=== PATIENT | male | born 1950 | race Caucasian/White ===

== ENCOUNTER 2020-03-26 14:22 | Observation (INO) | payer MEDICARE, OTHER ==
[2020-03-26] MEDS ORDERED: TYLENOL EXTRA STRENGTH 500 MG PO STA (15:04)
[2020-03-26] MEDS ORDERED: APRESOLINE 20 MG/ML INJ IV ONE (15:04)
--- NOTE | 2020-03-26 15:10 | ERPHSYRPT ---
- History of Present Illness Time Seen by Provider: 03/26/20 14:45 Source: patient Exam Limitations: no limitations Patient Subjective Stated Complaint: hypertension Triage Nursing Assessment: Pt brought to the ER by his , hypertensive, all other vitals wnl, denies pain, pulses normal, took bp medicine today but forgot last night, no difficulty breathing, doesn't appear to be in any distress Physician History: 62 years old male with history of hypertension poorly controlled, diabetes mellitus, BPH presented in the ER with chief complaint of 2 weeks history of uncontrolled blood pressure and has multiple medications changes done from 10 mg lisinopril daily to 40 mg but still blood pressure stays high in 200s. Denies any diet change are any energy drink intake. He denies any chest pain palpitations or new shortness of breath but has chronic smoker cough and dyspnea which is unchanged. No abdominal pain nausea or vomiting reported. Patient reports he has a dull headache most of the time for the last 2 weeks but no focal numbness tingling or weakness. Denies any visual disturbance or difficulty speech. Patient called his doctor and was recommended to report in the ER. Currently blood pressure is 237/1 20s. Timing/Duration: week(s) (2), intermittent, worse Severity: moderate Modifying Factors: Improves With: nothing Associated Symptoms: headaches, No vomiting, No abdominal pain, No shortness of breath, No cough, No chest pain, No loss of appetite (Yet Biolox he has had in his leg he is wondering if that should take care of it ER difficulty breathing or you have trouble breathing or you throat swollen everything seems okay you should probably be okay but if you start where you cannot breathe or you feel like your throat skin closed and do not ) Allergies/Adverse Reactions: No Known Drug Allergies Allergy (Verified 03/26/20 14:36) Home Medications: Glimepiride 4 mg [Amaryl 4 mg] 4 mg PO DAILY 03/26/20 [History] Metoprolol Succinate 50 mg PO DAILY 03/26/20 [History] Tamsulosin HCl 0.4 mg [Flomax 0.4 MG] 0.4 mg PO DAILY 03/26/20 [History] lisinopriL [Lisinopril] 20 mg PO BID 03/26/20 [History] Travel Risk - International Travel Have you traveled outside of the country in past 3 weeks: No - Coronavirus Screening Are you exhibiting any of the following symptoms?: No Close contact with a COVID-19 positive Pt in past 14-21 Days: No - Review of Systems Constitutional: No Symptoms Eyes: No Symptoms Ears, Nose, & Throat: No Symptoms Respiratory: Cough, Dyspnea Cardiac: No Symptoms Abdominal/Gastrointestinal: No Symptoms Genitourinary Symptoms: No Symptoms Musculoskeletal: No Symptoms Skin: No Symptoms Neurological: Headache Psychological: No Symptoms Endocrine: No Symptoms Hematologic/Lymphatic: No Symptoms Immunological/Allergic: No Symptoms - Past Medical History Cardiac History: Hypertension Endocrine Medical History: Diabetes Type II - Past Surgical History Past Surgical History: Yes Musculoskeletal: Orthopedic Surgery Other Surgical History: shoulder-left, left leg, shabana hands - Social History Smoking Status: Current every day smoker Exposure to second hand smoke: Yes Drug Use: marijuana Patient Lives Alone: No - Nursing Vital Signs Nursing Vital Signs: Initial Vital Signs Temperature 98.3 F 03/26/20 14:28 Pulse Rate 77 03/26/20 14:28 Blood Pressure 237/129 03/26/20 14:28 O2 Sat by Pulse Oximetry 98 03/26/20 14:28 Pain Scale Pain Intensity 0 - Physical Exam General Appearance: no apparent distress Eye Exam: PERRL/EOMI, eyes nml inspection Ears, Nose, Throat Exam: normal ENT inspection, TMs normal, pharynx normal Neck Exam: normal inspection, non-tender, supple, full range of motion Respiratory Exam: normal breath sounds, lungs clear Cardiovascular Exam: regular rate/rhythm, normal heart sounds, normal peripheral pulses Gastrointestinal/Abdomen Exam: soft, normal bowel sounds Back Exam: normal inspection, normal range of motion, No CVA tenderness Extremity Exam: normal inspection, normal range of motion Neurologic Exam: alert, oriented x 3, cooperative, manager organizational II-XII nml as tested, normal mood/affect, nml cerebellar function, nml station & gait, sensation nml Skin Exam: normal color SpO2 Interpretation: normal SpO2: 98 O2 Delivery: Room Air - Course EKG Interpreted by Me: RATE (70), Sinus Rhythm, Left Webster Deviation, LAFB, Q- wave (Septal), Non-specific ST Changes, Other Ordered Tests: Active Orders 24 hr Category Date Time Status Bedrest ROUTINE Activity 03/26/20 17:53 Active Bedrest with BRP/BSC ROUTINE Activity 03/26/20 17:53 Active Up With Assistance ROUTINE Activity 03/26/20 17:53 Active Accucheck Q4H Care 03/26/20 17:53 Active Admit as Inpatient ROUTINE Care 03/26/20 17:53 Active Software Engineering Manager STAT Care 03/26/20 15:04 Completed Code Status Order ROUTINE Care 03/26/20 17:53 Active EKG-ER Only STAT Care 03/26/20 15:03 Completed IV Care Q6H Care 03/26/20 17:53 Active IV Insertion STAT Care 03/26/20 15:03 Completed Neuro Checks Q4H Care 03/26/20 17:53 Active Rajesh Hamilton, Apply ROUTINE Care 03/26/20 17:53 Active Weight,Daily 0600 Care 03/26/20 17:53 Active Consistent Carbohydrate Diet 1800 Calorie Diet 03/26/20 Dinner Active CHEST 1 VIEW (PORTABLE) Stat Exams 03/26/20 15:03 Taken HEAD WITHOUT CONTRAST [CT] Stat Exams 03/26/20 15:03 Taken BNP [NT PRO BNP] Stat Lab 03/26/20 15:30 Completed CBC W DIFF AM.LAB Lab 03/27/20 04:00 Ordered CBC W DIFF Stat Lab 03/26/20 15:30 Completed CMP AM.LAB Lab 03/27/20 04:00 Ordered CMP Stat Lab 03/26/20 15:30 Completed TROPONIN Q3H Lab 03/26/20 15:30 Completed TROPONIN Q3H Lab 03/26/20 18:15 Ordered TROPONIN Q3H Lab 03/26/20 21:15 Ordered TROPONIN Q3H Lab 03/27/20 00:15 Ordered TROPONIN Q3H Lab 03/27/20 03:15 Ordered UA W/RFX UR CULTURE Stat Lab 03/26/20 15:30 Completed Transfer Order Routine Transfer 03/26/20 Completed Medication Summary Generic Name Dose Route Start Last Admin Trade Name Freq PRN Reason Stop Dose Admin Acetaminophen 650 mg 03/26/20 17:53 Tylenol 325 Mg PO 04/25/20 17:52 Q4H PRN PRN PAIN AND/OR FEVER Albuterol/Ipratropium 3 ml 03/26/20 17:53 Duoneb 0.5-3 Mg/3 Ml Neb IH 04/25/20 17:52 Q4HPRN PRN SHORTNESS OF BREATH/WHEEZING Famotidine 20 mg 03/26/20 22:00 Pepcid 20 Mg Vial IV 04/25/20 21:59 Q12HT ADILIA Insulin Human Lispro 0 unit 03/26/20 17:53 Humalog SQ 04/25/20 17:52 UD PRN HYPERGLYCEMIA Discontinued Medications Generic Name Dose Route Start Last Admin Trade Name Freq PRN Reason Stop Dose Admin Acetaminophen 1,000 mg 03/26/20 15:04 03/26/20 16:04 Tylenol Extra Strength 500 Mg PO 03/26/20 15:05 1,000 mg STAT STA Administration Acetaminophen Confirm 03/26/20 15:55 Tylenol Extra Strength 500 Mg Administered 03/26/20 15:56 Dose 1,000 mg .ROUTE .STK-MED ONE Hydralazine HCl 10 mg 03/26/20 15:04 03/26/20 16:04 Apresoline 20 Mg/Ml Inj IV 03/26/20 15:05 10 mg STAT ONE Administration Hydralazine HCl Confirm 03/26/20 15:55 Apresoline 20 Mg/Ml Inj Administered 03/26/20 15:56 Dose 20 mg .ROUTE .STK-MED ONE Nicardipine HCl 25 mg/ Sodium 250 mls @ 0 mls/hr 03/26/20 16:24 Chloride IV 04/25/20 16:23 .Q0M PRN TITRATE FOR BLOOD PRESSURE Protocol Titrate Lab/Rad Data: Laboratory Result Diagrams 03/26/20 15:30 03/26/20 15:30 Laboratory Results 03/26/20 03/26/20 03/26/20 Range/Units 15:30 15:30 15:30 WBC (4.0-10.5) K/mm3 RBC (4.1-5.6) M/mm3 Hgb (12.5-18.0) gm/dl Hct (42-50) % MCV (78-100) fl MCH (26-32) pg MCHC (32-36) g/dl RDW (11.5-14.0) % Plt Count (150-450) K/mm3 MPV (7.5-11.0) fl Gran % (36.0-66.0) % Eos # (Auto) (0-0.5) Absolute Lymphs (auto) (1.0-4.6) Absolute Monos (auto) (0.0-1.3) Lymphocytes % (24.0-44.0) % Monocytes % (0.0-12.0) % Eosinophils % (0.00-5.0) % Basophils % (0.0-0.4) % Absolute Granulocytes (1.4-6.9) Basophils # (0-0.4) Sodium 140 (137-145) mmol/L Potassium 3.7 (3.5-5.1) mmol/L Chloride 105 (98-107) mmol/L Carbon Dioxide 28 (22-30) mmol/L Anion Gap 11.8 (5-15) MEQ/L BUN 13 (9-20) mg/dL Creatinine 1.09 (0.66-1.25) mg/dL Estimated GFR > 60.0 ML/MIN Glucose 110 H (74-106) mg/dL Calcium 9.2 (8.4-10.2) mg/dL Total Bilirubin 0.70 (0.2-1.3) mg/dL AST 23 (17-59) U/L ALT 13 (0-50) U/L Alkaline Phosphatase 84 (38-126) U/L Troponin I < 0.012 (0.000-0.034) ng/mL NT-Pro-B Natriuret Pep 487 (0-900) pg/mL Serum Total Protein 8.2 (6.3-8.2) g/dL Albumin 4.4 (3.5-5.0) g/dL Urine Color (YELLOW) Urine Appearance (CLEAR) Urine pH (5-6) Ur Specific [place] (1.005-1.025) Urine Protein (Negative) Urine Ketones (NEGATIVE) Urine Blood (0-5) Sebastian/ul Urine Nitrite (NEGATIVE) Urine Bilirubin (NEGATIVE) Urine Urobilinogen (0-1) mg/dL Ur Leukocyte Esterase (NEGATIVE) Urine WBC (Auto) (0-5) /HPF Urine RBC (Auto) (0-2) /HPF U Epithel Cells (Auto) (FEW) /HPF Urine Bacteria (Auto) (NEGATIVE) /HPF Urine Mucus (Auto) (NEGATIVE) /HPF Urine Culture Reflexed (NO) Urine Glucose (NEGATIVE) mg/dL 03/26/20 03/26/20 Range/Units 15:30 15:30 WBC 8.9 (4.0-10.5) K/mm3 RBC 4.72 (4.1-5.6) M/mm3 Hgb 14.4 (12.5-18.0) gm/dl Hct 41.1 L (42-50) % MCV 87.1 (78-100) fl MCH 30.5 (26-32) pg MCHC 35.0 (32-36) g/dl RDW 14.3 H (11.5-14.0) % Plt Count 299 (150-450) K/mm3 MPV 11.2 H (7.5-11.0) fl Gran % 66.8 H (36.0-66.0) % Eos # (Auto) 0.26 (0-0.5) Absolute Lymphs (auto) 1.90 (1.0-4.6) Absolute Monos (auto) 0.78 (0.0-1.3) Lymphocytes % 21.3 L (24.0-44.0) % Monocytes % 8.7 (0.0-12.0) % Eosinophils % 2.9 (0.00-5.0) % Basophils % 0.3 (0.0-0.4) % Absolute Granulocytes 5.97 (1.4-6.9) Basophils # 0.03 (0-0.4) Sodium (137-145) mmol/L Potassium (3.5-5.1) mmol/L Chloride (98-107) mmol/L Carbon Dioxide (22-30) mmol/L Anion Gap (5-15) MEQ/L BUN (9-20) mg/dL Creatinine (0.66-1.25) mg/dL Estimated GFR ML/MIN Glucose (74-106) mg/dL Calcium (8.4-10.2) mg/dL Total Bilirubin (0.2-1.3) mg/dL AST (17-59) U/L ALT (0-50) U/L Alkaline Phosphatase (38-126) U/L Troponin I (0.000-0.034) ng/mL NT-Pro-B Natriuret Pep (0-900) pg/mL Serum Total Protein (6.3-8.2) g/dL Albumin (3.5-5.0) g/dL Urine Color STRAW (YELLOW) Urine Appearance CLEAR (CLEAR) Urine pH 7.0 (5-6) Ur Specific [place] 1.003 (1.005-1.025) Urine Protein 30 (Negative) Urine Ketones NEGATIVE (NEGATIVE) Urine Blood NEGATIVE (0-5) Sebastian/ul Urine Nitrite NEGATIVE (NEGATIVE) Urine Bilirubin NEGATIVE (NEGATIVE) Urine Urobilinogen NEGATIVE (0-1) mg/dL Ur Leukocyte Esterase NEGATIVE (NEGATIVE) Urine WBC (Auto) NONE (0-5) /HPF Urine RBC (Auto) NONE (0-2) /HPF U Epithel Cells (Auto) NONE (FEW) /HPF Urine Bacteria (Auto) NONE (NEGATIVE) /HPF Urine Mucus (Auto) SLIGHT (NEGATIVE) /HPF Urine Culture Reflexed NO (NO) Urine Glucose NEGATIVE (NEGATIVE) mg/dL - Progress Progress: improved, re-examined Progress Note: 03/26/20 16:55 69 years old is evaluated for uncontrolled blood pressure. On presentation systolic is 237. Patient is complaining of some headache but has nonfocal neuro exam. EKG did not show any acute ischemic changes. Initial troponins are negative. Chest x-ray negative for any acute cardiopulmonary findings. Grossly unremarkable work-up otherwise. I have obtained CT head which is negative for any bleed or ischemia at this point. Patient is given hydralazine but still on reevaluation blood pressure is more than 200 systolic. I have started on Cardene drip. I believe patient needs close monitoring and adjustment of his antihypertensive. I have called his primary care doctor Devang and patient is accepted for admission. Discussed with : Sathish Counseled pt/family regarding: lab results, diagnosis, rad results, smoking cessation - Departure Departure Disposition: Observation Clinical Impression: Hypertensive urgency Condition: Stable Critical Care Time: Yes Critical Care Time(excluding separately billable procedures): Critical 30-74 mins
[2020-03-26] MEDS ORDERED: APRESOLINE 20 MG/ML INJ ONE (15:55)
[2020-03-26] MEDS ORDERED: TYLENOL EXTRA STRENGTH 500 MG ONE (15:55)
[2020-03-26 16:06] LABS: Appearance CLEAR (CLEAR); Bilirubin NEGATIVE (NEGATIVE); Blood NEGATIVE Ery/ul (0-5); Glucose NEGATIVE (NEGATIVE); Ketones NEGATIVE (NEGATIVE); Leukocyte Esterase NEGATIVE (NEGATIVE); Mucus SLIGHT /HPF (NEGATIVE); Nitrite NEGATIVE (NEGATIVE); Protein,Urine Dip 30 (Negative); Specific Gravity 1.003 (1.005-1.025); Urobilinogen NEGATIVE mg/dL (0-1)
[2020-03-26 16:07] LABS: Absolute Neutrophil Ct (ANC) 5.97 (1.4-6.9); BASOPHIL % 0.3 % (0.0-0.4); Basophil (Absolute #) 0.03 (0-0.4); Eosinophil % 2.9 % (0.00-5.0); Eosinophil (Absolute #) 0.26 (0-0.5); Hematocrit 41.1 % (42-50); Hemoglobin 14.4 gm/dl (12.5-18.0); Lymphocytes % 21.3 % (24.0-44.0); Mean Cell Volume 87.1 fl (78-100); Mean Corpuscular Hemoglobin 30.5 pg (26-32); Mean Platelet Volume 11.2 fl (7.5-11.0); Monocyte (Absolute #) 0.78 (0.0-1.3); Monocytes % 8.7 % (0.0-12.0); Neutrophil % 66.8 % (36.0-66.0); Platelet Count 299 K/mm3 (150-450); Red Blood Count 4.72 M/mm3 (4.1-5.6); Red Cell Distribution Width 14.3 % (11.5-14.0); White Blood Count 8.9 K/mm3 (4.0-10.5)
[2020-03-26 16:16] LABS: ALBUMIN 4.4 g/dL (3.5-5.0); ALKALINE PHOSPHATASE 84 U/L (38-126); ANION GAP 11.8 MEQ/L (5-15); BLOOD UREA NITROGEN 13 mg/dL (9-20); CHLORIDE 105 mmol/L (98-107); Calcium 9.2 mg/dL (8.4-10.2); Carbon Dioxide 28 mmol/L (22-30); Creatinine 1 1.09 mg/dL (0.66-1.25); EST GLOMERULAR FILTRATION RATE > 60.0 ML/MIN; Glucose 110 mg/dL (74-106); Potassium 3.7 mmol/L (3.5-5.1); SGOT/AST 23 U/L (17-59); SGPT/ALT 13 U/L (0-50); SODIUM 140 mmol/L (137-145); Total Protein 8.2 g/dL (6.3-8.2)
[2020-03-26] MEDS ORDERED: CARDENE 25 MG/10 ML*** 25 MG in Sodium Chloride 0.9% 250 ML 240 ML IV PRN ×2 (16:24→19:32)
[2020-03-26] MEDS ORDERED: HUMALOG SQ PRN (17:53)
[2020-03-26] MEDS ORDERED: DUONEB 0.5-3 MG/3 ml Neb IH PRN (17:53)
[2020-03-26] MEDS ORDERED: TYLENOL 325 MG PO PRN (17:53)
--- NOTE | 2020-03-26 18:40 | XRAY ---
Indication: Uncontrolled high blood pressure. Comparison: None Portable apical lordotic chest hyperinflated and clear with incidental tiny calcified granulomas and minimal right upper lobe fibrosis/scarring. Heart is not enlarged. Bony thorax intact with mild degenerative changes. Impression: Nonacute hyperinflated chest with chronic features.
--- NOTE | 2020-03-26 18:42 | XRAY ---
Indication: Uncontrolled high blood pressure. Multiple contiguous axial images obtained through the head without contrast. Comparison: None Age-appropriate global atrophy. Minimal degenerative micro-ischemia bilaterally. No acute intracranial hemorrhage, abnormal extra-axial fluid collection, or mass effect. Fourth ventricle is midline without hydrocephalus. Abraham-white matter differentiation preserved. Bony calvarium intact. Visualized paranasal sinuses and mastoid air cells are clear. Impression: 1. Atrophy and degenerative micro-ischemia within normal limits for patient's age. 2. No acute intracranial abnormalities. Comment: Preliminary interpretation was made by [facility]. No critical discrepancy.
[2020-03-26] MEDS ORDERED: CARDENE 25 MG/10 ML IV ONE (19:41)
[2020-03-26] MEDS ORDERED: Sodium Chloride 0.9% 1000 ML 1,000 ML ONE (19:42)
[2020-03-26] MEDS ORDERED: SUBLIMAZE 100 MCG/2 ML IV ONE (19:45)
[2020-03-26] MEDS ORDERED: SUBLIMAZE 250 MCG/5 ML IV ONE (19:45)
[2020-03-26] MEDS ORDERED: Dextrose 5%/Water IV Soln. 250 ML 250 ML IV ONE (19:45)
[2020-03-26] MEDS ORDERED: Zofran 4 MG/2 ML VIAL ONE (19:46)
[2020-03-26] MEDS ORDERED: Zofran 4 MG/2 ML VIAL IV ONE (19:46)
[2020-03-26] MEDS ORDERED: SUBLIMAZE 100 MCG/2 ML ONE (19:46)
[2020-03-26] MEDS ORDERED: TRANDATE 20 MG/5 ML SYRINGE IV ONE (19:51)
[2020-03-26 20:46] VITALS: BP 224/102; PULSE 67; O2SAT 98
[2020-03-26] MEDS ORDERED: Pepcid 20 MG VIAL IV SCH (22:00)
--- NOTE | 2020-03-27 07:38 | PCM.SSS ---
History of Present Illness - Chief Complaint Chief Complaint: very high blood pressure for 2 weeks History of Present Illness: is a 69 years old male with history of hypertension poorly controlled, diabetes mellitus, BPH presented in the ER with chief complaint of 2 weeks history of uncontrolled blood pressure and has multiple medications changes done from 10 mg lisinopril daily to 40 mg but still blood pressure stays high in 200s. Denies any diet change are any energy drink intake. He denies any chest pain palpitations or new shortness of breath but has chronic smoker cough and dyspnea which is unchanged. No abdominal pain nausea or vomiting reported. Patient reports he has a dull headache most of the time for the last 2 weeks but no focal numbness tingling or weakness. Denies any visual disturbance or difficulty speech. Patient called his doctor and was recommended to report in the ER. Currently blood pressure is 237/1 20s. Timing/Duration: week(s) (2), intermittent, worse Severity: moderate Modifying Factors: Improves With: nothing Associated Symptoms: headaches, No vomiting, No abdominal pain, No shortness of breath, No cough, No chest pain, No loss of appetite - Review of Systems Constitutional: No Fever, No Chills Eyes: No Symptoms Ears, Nose, & Throat: No Symptoms Respiratory: No Cough, No Short Of Breath Cardiac: Chest Pain, No Edema, No Syncope Abdominal/Gastrointestinal: No Abdominal Pain, No Nausea, No Vomiting, No Diarrhea Genitourinary Symptoms: No Dysuria Musculoskeletal: No Back Pain, No Neck Pain Skin: No Rash Neurological: No Dizziness, No Focal Weakness, No Sensory Changes Psychological: No Symptoms Endocrine: No Symptoms Hematologic/Lymphatic: No Symptoms Immunological/Allergic: No Symptoms Medications & Allergies Home Medications: Home Medication List Albuterol/Ipratropium cc [Combivent Inhaler COMMON CANISTER] 1 puff IH DAILY PRN PRN 03/26/20 [History Confirmed 03/26/20] Aspirin EC 81 mg [Ecotrin 81 mg] 81 mg PO HS 03/26/20 [History Confirmed 03/26/20] Esomeprazole Magnesium 20 mg PO QAM 03/26/20 [History Confirmed 03/26/20] Fluticasone/Umeclidin/Vilanter [Trelegy Ellipta 100-62.5-25] 1 puff IH DAILY 03/26/20 [History Confirmed 03/26/20] Glimepiride 4 mg [Amaryl 4 mg] 4 mg PO DAILY 03/26/20 [History Confirmed 03/26/20] Metoprolol Succinate 50 mg PO HS 03/26/20 [History Confirmed 03/26/20] Tamsulosin HCl 0.4 mg [Flomax 0.4 MG] 0.4 mg PO DAILY 03/26/20 [History Confirmed 03/26/20] lisinopriL [Lisinopril] 20 mg PO BID 03/26/20 [History Confirmed 03/26/20] Allergies/Adverse Reactions: Allergies Allergy/AdvReac Type Severity Reaction Status Date / Time No Known Drug Allergies Allergy Verified 03/26/20 14:36 - Past Medical History Past Medical History: Yes Neurological History: No Pertinent History ENT History: No Pertinent History Cardiac History: Hypertension Respiratory History: COPD Endocrine Medical History: Diabetes Type II Musculoskelatal History: No Pertinent History GI Medical History: No Pertinent History History: No Pertinent History Pyscho-Social History: No Pertinent History Male Reproductive Disorders: Prostate Problems - Past Surgical History Past Surgical History: Yes Neuro Surgical History: No Pertinent History Cardiac History: No Pertinent History Respiratory Surgery: No Pertinent History GI Surgical History: No Pertinent History Genitourinary Surgical Hx: No Pertinent History Musculskeletal Surgical Hx: Orthopedic Surgery Male Surgical History: No Pertinent History Other Surgical History: shoulder-left, left leg, shabana hands - Social History Smoking Status: Current every day smoker Exposure to second hand smoke: Yes Alcohol: Weekly, Daily Drug Use: marijuana - Physical Exam Vital Signs: Vital Signs - 24 hr Temp Pulse Resp BP Pulse Ox 03/26/20 20:35 98.3 F 67 16 224/102 98 03/26/20 19:06 86 14 93 L 03/26/20 18:05 98 03/26/20 17:10 90 20 183/94 96 03/26/20 16:31 67 18 210/98 97 03/26/20 16:11 65 18 207/96 97 03/26/20 15:56 70 18 212/119 98 03/26/20 14:28 98.3 F 77 237/129 98 General Appearance: no apparent distress, alert Neurologic Exam: alert, oriented x 3, cooperative, normal mood/affect, nml cerebellar function, nml station & gait, sensation nml, No motor deficits Eye Exam: PERRL/EOMI, eyes nml inspection Ears, Nose, Throat Exam: normal ENT inspection, TMs normal, pharynx normal, moist mucous membranes Neck Exam: normal inspection, non-tender, supple, full range of motion Respiratory Exam: normal breath sounds, lungs clear, No respiratory distress Cardiovascular Exam: regular rate/rhythm, normal heart sounds, normal peripheral pulses Gastrointestinal/Abdomen Exam: soft, normal bowel sounds, No tenderness, No mass Back Exam: normal inspection, normal range of motion, No CVA tenderness, No vertebral tenderness Extremity Exam: normal inspection, normal range of motion, pelvis stable Skin Exam: normal color, warm, dry, No rash Lymphatic Exam: No adenopathy Results - Labs Lab/Micro Results: Lab Results-Last 24 Hours 03/26/20 03/26/20 03/26/20 Range/Units 15:30 15:30 15:30 WBC 8.9 (4.0-10.5) K/mm3 RBC 4.72 (4.1-5.6) M/mm3 Hgb 14.4 (12.5-18.0) gm/dl Hct 41.1 L (42-50) % MCV 87.1 (78-100) fl MCH 30.5 (26-32) pg MCHC 35.0 (32-36) g/dl RDW 14.3 H (11.5-14.0) % Plt Count 299 (150-450) K/mm3 MPV 11.2 H (7.5-11.0) fl Gran % 66.8 H (36.0-66.0) % Eos # (Auto) 0.26 (0-0.5) Absolute Lymphs (auto) 1.90 (1.0-4.6) Absolute Monos (auto) 0.78 (0.0-1.3) Lymphocytes % 21.3 L (24.0-44.0) % Monocytes % 8.7 (0.0-12.0) % Eosinophils % 2.9 (0.00-5.0) % Basophils % 0.3 (0.0-0.4) % Absolute Granulocytes 5.97 (1.4-6.9) Basophils # 0.03 (0-0.4) Sodium 140 (137-145) mmol/L Potassium 3.7 (3.5-5.1) mmol/L Chloride 105 (98-107) mmol/L Carbon Dioxide 28 (22-30) mmol/L Anion Gap 11.8 (5-15) MEQ/L BUN 13 (9-20) mg/dL Creatinine 1.09 (0.66-1.25) mg/dL Estimated GFR > 60.0 ML/MIN Glucose 110 H (74-106) mg/dL Hemoglobin A1c (4.5-6.0) % Calcium 9.2 (8.4-10.2) mg/dL Total Bilirubin 0.70 (0.2-1.3) mg/dL AST 23 (17-59) U/L ALT 13 (0-50) U/L Alkaline Phosphatase 84 (38-126) U/L Troponin I (0.000-0.034) ng/mL NT-Pro-B Natriuret Pep (0-900) pg/mL Serum Total Protein 8.2 (6.3-8.2) g/dL Albumin 4.4 (3.5-5.0) g/dL Urine Color STRAW (YELLOW) Urine Appearance CLEAR (CLEAR) Urine pH 7.0 (5-6) Ur Specific [place] 1.003 (1.005-1.025) Urine Protein 30 (Negative) Urine Ketones NEGATIVE (NEGATIVE) Urine Blood NEGATIVE (0-5) Sebastian/ul Urine Nitrite NEGATIVE (NEGATIVE) Urine Bilirubin NEGATIVE (NEGATIVE) Urine Urobilinogen NEGATIVE (0-1) mg/dL Ur Leukocyte Esterase NEGATIVE (NEGATIVE) Urine WBC (Auto) NONE (0-5) /HPF Urine RBC (Auto) NONE (0-2) /HPF U Epithel Cells (Auto) NONE (FEW) /HPF Urine Bacteria (Auto) NONE (NEGATIVE) /HPF Urine Mucus (Auto) SLIGHT (NEGATIVE) /HPF Urine Culture Reflexed NO (NO) Urine Glucose NEGATIVE (NEGATIVE) mg/dL 03/26/20 03/26/20 03/26/20 Range/Units 15:30 15:30 18:20 WBC (4.0-10.5) K/mm3 RBC (4.1-5.6) M/mm3 Hgb (12.5-18.0) gm/dl Hct (42-50) % MCV (78-100) fl MCH (26-32) pg MCHC (32-36) g/dl RDW (11.5-14.0) % Plt Count (150-450) K/mm3 MPV (7.5-11.0) fl Gran % (36.0-66.0) % Eos # (Auto) (0-0.5) Absolute Lymphs (auto) (1.0-4.6) Absolute Monos (auto) (0.0-1.3) Lymphocytes % (24.0-44.0) % Monocytes % (0.0-12.0) % Eosinophils % (0.00-5.0) % Basophils % (0.0-0.4) % Absolute Granulocytes (1.4-6.9) Basophils # (0-0.4) Sodium (137-145) mmol/L Potassium (3.5-5.1) mmol/L Chloride (98-107) mmol/L Carbon Dioxide (22-30) mmol/L Anion Gap (5-15) MEQ/L BUN (9-20) mg/dL Creatinine (0.66-1.25) mg/dL Estimated GFR ML/MIN Glucose (74-106) mg/dL Hemoglobin A1c (4.5-6.0) % Calcium (8.4-10.2) mg/dL Total Bilirubin (0.2-1.3) mg/dL AST (17-59) U/L ALT (0-50) U/L Alkaline Phosphatase (38-126) U/L Troponin I < 0.012 < 0.012 (0.000-0.034) ng/mL NT-Pro-B Natriuret Pep 487 (0-900) pg/mL Serum Total Protein (6.3-8.2) g/dL Albumin (3.5-5.0) g/dL Urine Color (YELLOW) Urine Appearance (CLEAR) Urine pH (5-6) Ur Specific [place] (1.005-1.025) Urine Protein (Negative) Urine Ketones (NEGATIVE) Urine Blood (0-5) Sebastian/ul Urine Nitrite (NEGATIVE) Urine Bilirubin (NEGATIVE) Urine Urobilinogen (0-1) mg/dL Ur Leukocyte Esterase (NEGATIVE) Urine WBC (Auto) (0-5) /HPF Urine RBC (Auto) (0-2) /HPF U Epithel Cells (Auto) (FEW) /HPF Urine Bacteria (Auto) (NEGATIVE) /HPF Urine Mucus (Auto) (NEGATIVE) /HPF Urine Culture Reflexed (NO) Urine Glucose (NEGATIVE) mg/dL 03/26/20 03/26/20 Range/Units 20:00 Unknown WBC (4.0-10.5) K/mm3 RBC (4.1-5.6) M/mm3 Hgb (12.5-18.0) gm/dl Hct (42-50) % MCV (78-100) fl MCH (26-32) pg MCHC (32-36) g/dl RDW (11.5-14.0) % Plt Count (150-450) K/mm3 MPV (7.5-11.0) fl Gran % (36.0-66.0) % Eos # (Auto) (0-0.5) Absolute Lymphs (auto) (1.0-4.6) Absolute Monos (auto) (0.0-1.3) Lymphocytes % (24.0-44.0) % Monocytes % (0.0-12.0) % Eosinophils % (0.00-5.0) % Basophils % (0.0-0.4) % Absolute Granulocytes (1.4-6.9) Basophils # (0-0.4) Sodium (137-145) mmol/L Potassium (3.5-5.1) mmol/L Chloride (98-107) mmol/L Carbon Dioxide (22-30) mmol/L Anion Gap (5-15) MEQ/L BUN (9-20) mg/dL Creatinine (0.66-1.25) mg/dL Estimated GFR ML/MIN Glucose (74-106) mg/dL Hemoglobin A1c 6.84 H (4.5-6.0) % Calcium (8.4-10.2) mg/dL Total Bilirubin (0.2-1.3) mg/dL AST (17-59) U/L ALT (0-50) U/L Alkaline Phosphatase (38-126) U/L Troponin I < 0.012 (0.000-0.034) ng/mL NT-Pro-B Natriuret Pep (0-900) pg/mL Serum Total Protein (6.3-8.2) g/dL Albumin (3.5-5.0) g/dL Urine Color (YELLOW) Urine Appearance (CLEAR) Urine pH (5-6) Ur Specific [place] (1.005-1.025) Urine Protein (Negative) Urine Ketones (NEGATIVE) Urine Blood (0-5) Sebastian/ul Urine Nitrite (NEGATIVE) Urine Bilirubin (NEGATIVE) Urine Urobilinogen (0-1) mg/dL Ur Leukocyte Esterase (NEGATIVE) Urine WBC (Auto) (0-5) /HPF Urine RBC (Auto) (0-2) /HPF U Epithel Cells (Auto) (FEW) /HPF Urine Bacteria (Auto) (NEGATIVE) /HPF Urine Mucus (Auto) (NEGATIVE) /HPF Urine Culture Reflexed (NO) Urine Glucose (NEGATIVE) mg/dL - Radiology Impressions Radiology Exams & Impressions: Radiology Procedures Category Date Time Status ABDOMEN AND PELVIS W CONTRAST [CT] Stat Exams 03/26/20 19:49 Taken CHEST 1 VIEW (PORTABLE) Stat Exams 03/26/20 15:03 Completed CHEST WITH CONTRAST [CT] Stat Exams 03/26/20 19:49 Taken HEAD WITHOUT CONTRAST [CT] Stat Exams 03/26/20 15:03 Completed - Other Procedures and Tests Respiratory Therapy 03/26/20 19:06 Respiratory Therapy Assessment DAILY 03/26/20 21:35 Oxygen Nasal Cannula 4 lpm Assessment/Plan (1) Hypertensive urgency Status: Acute Assessment & Plan: Chief Complaint Diagnosis very high blood pressure for 2 weeks Allergies Allergy/AdvReac Type Severity Reaction Status Date / Time No Known Drug Allergies Allergy Verified 03/26/20 14:36 Vital Signs (Last 24 hours) Temp Pulse Resp BP Pulse Ox 03/26/20 20:35 98.3 F 67 16 224/102 98 03/26/20 19:06 86 14 93 L 03/26/20 18:05 98 03/26/20 17:10 90 20 183/94 96 03/26/20 16:31 67 18 210/98 97 03/26/20 16:11 65 18 207/96 97 03/26/20 15:56 70 18 212/119 98 03/26/20 14:28 98.3 F 77 237/129 98 Home Medications Medication Instructions Recorded Confirmed Last Taken Type Albuterol/Ipratropium cc 1 puff IH DAILY PRN PRN 03/26/20 03/26/20 Unknown H istory [Combivent Inhaler COMMON CANISTER] Aspirin EC 81 mg [Ecotrin 81 81 mg PO HS 03/26/20 03/26/20 03/25/20 History mg] Esomeprazole Magnesium 20 mg PO QAM 03/26/20 03/26/20 03/26/20 History Fluticasone/Umeclidin/Vilanter 1 puff IH DAILY 03/26/20 03/26/20 Unknown History [Trelecathleen Ellipta 100-62.5-25] Glimepiride 4 mg [Amaryl 4 4 mg PO DAILY 03/26/20 03/26/20 03/26/20 History mg] Metoprolol Succinate 50 mg PO HS 03/26/20 03/26/20 03/25/20 History Tamsulosin HCl 0.4 mg [Flomax 0.4 mg PO DAILY 03/26/20 03/26/20 03/26/20 History 0.4 MG] lisinopriL [Lisinopril] 20 mg PO BID 03/26/20 03/26/20 03/26/20 History Current Medications Discontinued Medications Generic Name Dose Route Start Last Admin Trade Name Freq PRN Reason Stop Dose Admin Acetaminophen 1,000 mg 03/26/20 15:04 03/26/20 16:04 Tylenol Extra Strength 500 Mg PO 03/26/20 15:05 1,000 mg STAT STA Administration Acetaminophen Confirm 03/26/20 15:55 Tylenol Extra Strength 500 Mg Administered 03/26/20 15:56 Dose 1,000 mg .ROUTE .STK-MED ONE Acetaminophen 650 mg 03/26/20 17:53 Tylenol 325 Mg PO 04/25/20 17:52 Q4H PRN PRN PAIN AND/OR FEVER Albuterol/Ipratropium 3 ml 03/26/20 17:53 03/26/20 19:04 Duoneb 0.5-3 Mg/3 Ml Neb IH 04/25/20 17:52 3 ml Q4HPRN PRN Administration SHORTNESS OF BREATH/WHEEZING Famotidine 20 mg 03/26/20 22:00 Pepcid 20 Mg Vial IV 04/25/20 21:59 Q12HT ADILIA Fentanyl Citrate 50 mcg 03/26/20 19:45 Sublimaze 250 Mcg/5 Ml IV 03/26/20 19:46 NOW ONE Fentanyl Citrate Confirm 03/26/20 19:46 Sublimaze 100 Mcg/2 Ml Administered 03/26/20 19:47 Dose 100 mcg .ROUTE .STK-MED ONE Fentanyl Citrate 50 mcg 03/26/20 19:45 03/26/20 19:45 Sublimaze 100 Mcg/2 Ml IV 03/26/20 19:46 50 mcg STAT ONE Administration Hydralazine HCl 10 mg 03/26/20 15:04 03/26/20 16:04 Apresoline 20 Mg/Ml Inj IV 03/26/20 15:05 10 mg STAT ONE Administration Hydralazine HCl Confirm 03/26/20 15:55 Apresoline 20 Mg/Ml Inj Administered 03/26/20 15:56 Dose 20 mg .ROUTE .STK-MED ONE Nicardipine HCl 25 mg/ Sodium 250 mls @ 0 mls/hr 03/26/20 16:24 03/26/20 19:52 Chloride IV 04/25/20 16:23 0.5 mg/hr .Q0M PRN 5 mls/hr TITRATE FOR BLOOD PRESSURE Administration Protocol Titrate Nicardipine HCl 25 mg/ Sodium 250 mls @ 0 mls/hr 03/26/20 19:32 Chloride IV 04/25/20 19:31 .Q0M PRN TITRATE FOR BLOOD PRESSURE Protocol Titrate Sodium Chloride Confirm 03/26/20 19:42 Sodium Chloride 0.9% 1000 Ml Administered 03/26/20 19:43 Dose 1,000 mls @ ud .ROUTE .STK-MED ONE Dextrose Confirm 03/26/20 19:45 Dextrose 5%/Water Iv Soln. 250 Ml Administered 03/26/20 19:46 Dose 250 mls @ ud IV .STK-MED ONE Insulin Human Lispro 0 unit 03/26/20 17:53 Humalog SQ 04/25/20 17:52 UD PRN HYPERGLYCEMIA Labetalol HCl Confirm 03/26/20 19:51 Trandate 20 Mg/5 Ml Syringe Administered 03/26/20 19:52 Dose 20 mg IV .STK-MED ONE Nicardipine HCl Confirm 03/26/20 19:41 Cardene 25 Mg/10 Ml Administered 03/26/20 19:42 Dose 25 mg IV .STK-MED ONE Ondansetron HCl 4 mg 03/26/20 19:46 03/26/20 19:45 Zofran 4 Mg/2 Ml Vial IV 03/26/20 19:47 4 mg NOW ONE Administration Ondansetron HCl Confirm 03/26/20 19:46 Zofran 4 Mg/2 Ml Vial Administered 03/26/20 19:47 Dose 4 mg .ROUTE .STK-MED ONE Intake & Output (Last 24 hours) 03/24/20 03/25/20 03/26/20 03/27/20 11:59 11:59 11:59 11:59 Weight 78.4 kg Laboratory Results (Last 24 hours) 03/26/20 03/26/20 03/26/20 Unknown 20:00 18:20 WBC RBC Hgb Hct MCV MCH MCHC RDW Plt Count MPV Gran % Eos # (Auto) Absolute Lymphs (auto) Absolute Monos (auto) Lymphocytes % Monocytes % Eosinophils % Basophils % Absolute Granulocytes Basophils # Sodium Potassium Chloride Carbon Dioxide Anion Gap BUN Creatinine Estimated GFR Glucose Hemoglobin A1c 6.84 H Calcium Total Bilirubin AST ALT Alkaline Phosphatase Troponin I < 0.012 < 0.012 NT-Pro-B Natriuret Pep Serum Total Protein Albumin Urine Color Urine Appearance Urine pH Ur Specific [place] Urine Protein Urine Ketones Urine Blood Urine Nitrite Urine Bilirubin Urine Urobilinogen Ur Leukocyte Esterase Urine WBC (Auto) Urine RBC (Auto) U Epithel Cells (Auto) Urine Bacteria (Auto) Urine Mucus (Auto) Urine Culture Reflexed Urine Glucose 03/26/20 03/26/20 03/26/20 15:30 15:30 15:30 WBC RBC Hgb Hct MCV MCH MCHC RDW Plt Count MPV Gran % Eos # (Auto) Absolute Lymphs (auto) Absolute Monos (auto) Lymphocytes % Monocytes % Eosinophils % Basophils % Absolute Granulocytes Basophils # Sodium 140 Potassium 3.7 Chloride 105 Carbon Dioxide 28 Anion Gap 11.8 BUN 13 Creatinine 1.09 Estimated GFR > 60.0 Glucose 110 H Hemoglobin A1c Calcium 9.2 Total Bilirubin 0.70 AST 23 ALT 13 Alkaline Phosphatase 84 Troponin I < 0.012 NT-Pro-B Natriuret Pep 487 Serum Total Protein 8.2 Albumin 4.4 Urine Color Urine Appearance Urine pH Ur Specific [place] Urine Protein Urine Ketones Urine Blood Urine Nitrite Urine Bilirubin Urine Urobilinogen Ur Leukocyte Esterase Urine WBC (Auto) Urine RBC (Auto) U Epithel Cells (Auto) Urine Bacteria (Auto) Urine Mucus (Auto) Urine Culture Reflexed Urine Glucose 03/26/20 03/26/20 15:30 15:30 WBC 8.9 RBC 4.72 Hgb 14.4 Hct 41.1 L MCV 87.1 MCH 30.5 MCHC 35.0 RDW 14.3 H Plt Count 299 MPV 11.2 H Gran % 66.8 H Eos # (Auto) 0.26 Absolute Lymphs (auto) 1.90 Absolute Monos (auto) 0.78 Lymphocytes % 21.3 L Monocytes % 8.7 Eosinophils % 2.9 Basophils % 0.3 Absolute Granulocytes 5.97 Basophils # 0.03 Sodium Potassium Chloride Carbon Dioxide Anion Gap BUN Creatinine Estimated GFR Glucose Hemoglobin A1c Calcium Total Bilirubin AST ALT Alkaline Phosphatase Troponin I NT-Pro-B Natriuret Pep Serum Total Protein Albumin Urine Color STRAW Urine Appearance CLEAR Urine pH 7.0 Ur Specific [place] 1.003 Urine Protein 30 Urine Ketones NEGATIVE Urine Blood NEGATIVE Urine Nitrite NEGATIVE Urine Bilirubin NEGATIVE Urine Urobilinogen NEGATIVE Ur Leukocyte Esterase NEGATIVE Urine WBC (Auto) NONE Urine RBC (Auto) NONE U Epithel Cells (Auto) NONE Urine Bacteria (Auto) NONE Urine Mucus (Auto) SLIGHT Urine Culture Reflexed NO Urine Glucose NEGATIVE Orders (Last 24 hours) Category Date Time Status Bedrest ROUTINE Activity 03/26/20 17:53 Active Bedrest with BRP/BSC ROUTINE Activity 03/26/20 17:53 Active Up With Assistance ROUTINE Activity 03/26/20 17:53 Active Accucheck Q4H Care 03/26/20 17:53 Active Entry Level Electrical Engineer STAT Care 03/26/20 15:04 Completed Code Status Order ROUTINE Care 03/26/20 17:53 Active EKG-ER Only STAT Care 03/26/20 15:03 Completed IV Care Q6H Care 03/26/20 17:53 Active IV Insertion STAT Care 03/26/20 15:03 Completed Neuro Checks Q4H Care 03/26/20 17:[address] in Observation ROUTINE Care 03/26/20 17:42 Active Rajesh Hamilton, Apply ROUTINE Care 03/26/20 17:53 Active Weight,Daily 0600 Care 03/26/20 17:53 Active Brake Repairer Railroad/Discharge Plan ROUTINE Cons 03/26/20 19:26 Active Consistent Carbohydrate Diet 1800 Calorie Diet 03/26/20 Dinner Completed Nutritional Admission Screen ONCE Diet 03/26/20 20:57 Active ABDOMEN AND PELVIS W CONTRAST [CT] Stat Exams 03/26/20 19:49 Taken CHEST 1 VIEW (PORTABLE) Stat Exams 03/26/20 15:03 Completed CHEST WITH CONTRAST [CT] Stat Exams 03/26/20 19:49 Taken HEAD WITHOUT CONTRAST [CT] Stat Exams 03/26/20 15:03 Completed BNP [NT PRO BNP] Stat Lab 03/26/20 15:30 Completed CBC W DIFF Stat Lab 03/26/20 15:30 Completed CMP Stat Lab 03/26/20 15:30 Completed TROPONIN Q3H Lab 03/26/20 15:30 Completed TROPONIN Q3H Lab 03/26/20 18:20 Completed TROPONIN Q3H Lab 03/26/20 20:00 Completed UA W/RFX UR CULTURE Stat Lab 03/26/20 15:30 Completed Acetaminophen 325 mg [Tylenol 325 mg] Med 03/26/20 17:53 Discontinued 650 mg PO Q4H PRN PRN Acetaminophen 500 mg [Tylenol Extra Strength 500 mg* Med 03/26/20 15:55 Discontinued ] 1,000 mg .ROUTE .STK-MED ONE Acetaminophen 500 mg [Tylenol Extra Strength 500 mg* Med 03/26/20 15:04 Discontinued ] 1,000 mg PO STAT STA Albuterol/Ipratropium 3ml Neb* [DUONEB 0.5-3 MG/3 ml Med 03/26/20 17:53 Discontinued Neb] 3 ml IH Q4HPRN PRN D5w 250 ml [Dextrose 5%/Water IV Soln. 250 ML] 250 ml Med 03/26/20 19:45 Discontinued IV UD Famotidine 20 mg Vial [Pepcid 20 MG VIAL] Med 03/26/20 22:00 Discontinued 20 mg IV Q12HT Fentanyl Citrate 100 Mcg/2 ml* [Sublimaze 100 Mcg/2 ml* Med 03/26/20 19:46 Discontinued ] 100 mcg .ROUTE .STK-MED ONE Fentanyl Citrate 100 Mcg/2 ml* [Sublimaze 100 Mcg/2 ml* Med 03/26/20 19:45 Discontinued ] 50 mcg IV STAT ONE Fentanyl Citrate 250 Mcg/5 ml* [Sublimaze 250 Mcg/5 ml* Med 03/26/20 19:45 Discontinued ] 50 mcg IV NOW ONE HydrALAzine HCL 20 MG INJ [Apresoline 20 mg/ml Inj Med 03/26/20 15:04 D iscontinued *] 10 mg IV STAT ONE HydrALAzine HCL 20 MG INJ [Apresoline 20 mg/ml Inj Med 03/26/20 15:55 Discontinued *] 20 mg .ROUTE .STK-MED ONE Insulin Lispro [Humalog] Med 03/26/20 17:53 Discontinued See Dose Instructions SQ UD PRN Labetalol HCl 20 mg/4 ml [Trandate 20 mg/5 ml Med 03/26/20 19:51 Discontinued Syringe] 20 mg IV .STK-MED ONE NaCl 0.9% 1000 ml [Sodium Chloride 0.9% 1000 ML] 1,000 Med 03/26/20 19:42 Discontinued ml .ROUTE UD NaCl 0.9% 250 ml [Sodium Chloride 0.9% 250 ML] 240 ml Med 03/26/20 16:24 Discontinued Nicardipine HCl 25Mg/10Ml [Cardene 25 mg/10 ml] 25 mg IV Titrate NaCl 0.9% 250 ml [Sodium Chloride 0.9% 250 ML] 240 ml Med 03/26/20 19:32 Discontinued Nicardipine HCl 25Mg/10Ml [Cardene 25 mg/10 ml] 25 mg IV Titrate Nicardipine HCl 25Mg/10Ml [Cardene 25 mg/10 ml] Med 03/26/20 19:41 Discontinued 25 mg IV .STK-MED ONE Ondansetron HCl 4 mg/2 ml [Zofran 4 MG/2 ML VIAL] Med 03/26/20 19:46 Discontinued 4 mg .ROUTE .STK-MED ONE Ondansetron HCl 4 mg/2 ml [Zofran 4 MG/2 ML VIAL] Med 03/26/20 19:46 Discontinued 4 mg IV NOW ONE EKG ROUTINE RT 03/26/20 19:55 Completed Oxygen Nasal Cannula 4 lpm RT 03/26/20 21:35 Active Respiratory Therapy Assessment DAILY RT 03/26/20 19:06 Active Patient Care Notes (Last 24 hours) 03/26/20 22:32 Nursing Note by Deena De La Rosa 1939- Pt put metal fabrication supervisor light and stated "I'm having chest pain." Heart rate increased to 180's. Assisted pt to bed from bedside chair. 1941-Code rapid called d/t increased heart rate and B/P. VS-98.7m 193/109, 166, 22, 99%, GCS 15. Instructed pt to cough. Heart rate decreased to 160's. Lungs clr. Resp easy/even. "Pt shaky". HS in room. 1943-ER MD in room. O2 applied @ 4 L NC. Continues to c/o pain in left chest. 1947-Fentanyl 50 mg IV given, Zofran 4mg IV given, 1949- 2nd IV started in rt ac 20g 1951-Cardene 5mg/hr started. 1952- Labetalol 10 mg IV given 1955- Lt arm 134/112, 153, 99% on 4L. Rt arm 176/99, 132, 99% 4L. 1954-EKG done. 1999 Labetalol 10mg IV given. 2001 163/118, 123, (*% 4L. 2003 Pt to radiology. 2004-Called Dr La pt to transfer to [facility]. 2009-Called to report transfer. 2054-Pt return from radiology 2100-Pt transfer to [facility]. Initialized on 03/26/20 22:32 - END OF NOTE 03/26/20 18:05 Nursing Note by Sharron Lainez ADMISSION ORDER WAS PUT IN INPATIENT. RECEIVED A CALL FROM [facility] TO HAVE PATIENT ADMITTED OBSERVATION. ORDER WAS NOT CHANGED AT THE TIME PATIENT CAME TO FLOOR. I ADMITTED OBS. Initialized on 03/26/20 18:05 - END OF NOTE patient transferred to [facility] Code(s): I16.0 - HYPERTENSIVE URGENCY (2) Type 2 diabetes mellitus Status: Acute Qualifiers: Diabetes mellitus penitentiary insulin use: without equipment operator intermodal yard use Diabetes mellitus complication status: with circulatory complication Diabetes mellitus complication detail: with other circulatory complications Qualified Code(s): E11.59 - Type 2 diabetes mellitus with other circulatory complications Hospital Summary - Hospital Course Hospital Course: Last Vital Signs Temp 98.3 F 03/26/20 20:35 Pulse 67 03/26/20 20:35 Resp 16 03/26/20 20:35 BP 224/102 03/26/20 20:35 Pulse Ox 98 03/26/20 20:35 Allergies No Known Drug Allergies Allergy (Verified 03/26/20 14:36) Intake & Output 03/26/20 03/27/20 11:59 11:59 Weight 78.4 kg Orders 03/26/20 17:42 Place in Observation ROUTINE 03/26/20 20:57 Nutritional Admission Screen ONCE 03/26/20 21:35 Oxygen Nasal Cannula 4 lpm Lab Tests 03/26/20 03/26/20 03/26/20 15:30 15:30 15:30 WBC 8.9 RBC 4.72 Hgb 14.4 Hct 41.1 L MCV 87.1 MCH 30.5 MCHC 35.0 RDW 14.3 H Plt Count 299 MPV 11.2 H Gran % 66.8 H Eos # (Auto) 0.26 Absolute Lymphs (auto) 1.90 Absolute Monos (auto) 0.78 Lymphocytes % 21.3 L Monocytes % 8.7 Eosinophils % 2.9 Basophils % 0.3 Absolute Granulocytes 5.97 Basophils # 0.03 Sodium 140 Potassium 3.7 Chloride 105 Carbon Dioxide 28 Anion Gap 11.8 BUN 13 Creatinine 1.09 Estimated GFR > 60.0 Glucose 110 H Hemoglobin A1c Calcium 9.2 Total Bilirubin 0.70 AST 23 ALT 13 Alkaline Phosphatase 84 Troponin I NT-Pro-B Natriuret Pep Serum Total Protein 8.2 Albumin 4.4 Urine Color STRAW Urine Appearance CLEAR Urine pH 7.0 Ur Specific [place] 1.003 Urine Protein 30 Urine Ketones NEGATIVE Urine Blood NEGATIVE Urine Nitrite NEGATIVE Urine Bilirubin NEGATIVE Urine Urobilinogen NEGATIVE Ur Leukocyte Esterase NEGATIVE Urine WBC (Auto) NONE Urine RBC (Auto) NONE U Epithel Cells (Auto) NONE Urine Bacteria (Auto) NONE Urine Mucus (Auto) SLIGHT Urine Culture Reflexed NO Urine Glucose NEGATIVE 03/26/20 03/26/20 03/26/20 15:30 15:30 18:20 WBC RBC Hgb Hct MCV MCH MCHC RDW Plt Count MPV Gran % Eos # (Auto) Absolute Lymphs (auto) Absolute Monos (auto) Lymphocytes % Monocytes % Eosinophils % Basophils % Absolute Granulocytes Basophils # Sodium Potassium Chloride Carbon Dioxide Anion Gap BUN Creatinine Estimated GFR Glucose Hemoglobin A1c Calcium Total Bilirubin AST ALT Alkaline Phosphatase Troponin I < 0.012 < 0.012 NT-Pro-B Natriuret Pep 487 Serum Total Protein Albumin Urine Color Urine Appearance Urine pH Ur Specific [place] Urine Protein Urine Ketones Urine Blood Urine Nitrite Urine Bilirubin Urine Urobilinogen Ur Leukocyte Esterase Urine WBC (Auto) Urine RBC (Auto) U Epithel Cells (Auto) Urine Bacteria (Auto) Urine Mucus (Auto) Urine Culture Reflexed Urine Glucose 03/26/20 03/26/20 20:00 Unknown WBC RBC Hgb Hct MCV MCH MCHC RDW Plt Count MPV Gran % Eos # (Auto) Absolute Lymphs (auto) Absolute Monos (auto) Lymphocytes % Monocytes % Eosinophils % Basophils % Absolute Granulocytes Basophils # Sodium Potassium Chloride Carbon Dioxide Anion Gap BUN Creatinine Estimated GFR Glucose Hemoglobin A1c 6.84 H Calcium Total Bilirubin AST ALT Alkaline Phosphatase Troponin I < 0.012 NT-Pro-B Natriuret Pep Serum Total Protein Albumin Urine Color Urine Appearance Urine pH Ur Specific [place] Urine Protein Urine Ketones Urine Blood Urine Nitrite Urine Bilirubin Urine Urobilinogen Ur Leukocyte Esterase Urine WBC (Auto) Urine RBC (Auto) U Epithel Cells (Auto) Urine Bacteria (Auto) Urine Mucus (Auto) Urine Culture Reflexed Urine Glucose - Vitals & Intake/Output Vital Signs: Vital Signs Temperature 98.3 F 03/26/20 20:35 Pulse Rate 67 03/26/20 20:35 Respiratory Rate 16 03/26/20 20:35 Blood Pressure 224/102 03/26/20 20:35 O2 Sat by Pulse Oximetry 98 03/26/20 20:35 Intake & Output: Intake & Output 03/24/20 03/25/20 03/26/20 03/27/20 11:59 11:59 11:59 11:59 Weight 78.4 kg - Lab Result Diagrams: 03/26/20 15:30 03/26/20 15:30 Lab Results-Last 24 Hrs: Lab Results-Last 24 Hours 03/26/20 03/26/20 03/26/20 Range/Units 15:30 15:30 15:30 WBC 8.9 (4.0-10.5) K/mm3 RBC 4.72 (4.1-5.6) M/mm3 Hgb 14.4 (12.5-18.0) gm/dl Hct 41.1 L (42-50) % MCV 87.1 (78-100) fl MCH 30.5 (26-32) pg MCHC 35.0 (32-36) g/dl RDW 14.3 H (11.5-14.0) % Plt Count 299 (150-450) K/mm3 MPV 11.2 H (7.5-11.0) fl Gran % 66.8 H (36.0-66.0) % Eos # (Auto) 0.26 (0-0.5) Absolute Lymphs (auto) 1.90 (1.0-4.6) Absolute Monos (auto) 0.78 (0.0-1.3) Lymphocytes % 21.3 L (24.0-44.0) % Monocytes % 8.7 (0.0-12.0) % Eosinophils % 2.9 (0.00-5.0) % Basophils % 0.3 (0.0-0.4) % Absolute Granulocytes 5.97 (1.4-6.9) Basophils # 0.03 (0-0.4) Sodium 140 (137-145) mmol/L Potassium 3.7 (3.5-5.1) mmol/L Chloride 105 (98-107) mmol/L Carbon Dioxide 28 (22-30) mmol/L Anion Gap 11.8 (5-15) MEQ/L BUN 13 (9-20) mg/dL Creatinine 1.09 (0.66-1.25) mg/dL Estimated GFR > 60.0 ML/MIN Glucose 110 H (74-106) mg/dL Hemoglobin A1c (4.5-6.0) % Calcium 9.2 (8.4-10.2) mg/dL Total Bilirubin 0.70 (0.2-1.3) mg/dL AST 23 (17-59) U/L ALT 13 (0-50) U/L Alkaline Phosphatase 84 (38-126) U/L Troponin I (0.000-0.034) ng/mL NT-Pro-B Natriuret Pep (0-900) pg/mL Serum Total Protein 8.2 (6.3-8.2) g/dL Albumin 4.4 (3.5-5.0) g/dL Urine Color STRAW (YELLOW) Urine Appearance CLEAR (CLEAR) Urine pH 7.0 (5-6) Ur Specific [place] 1.003 (1.005-1.025) Urine Protein 30 (Negative) Urine Ketones NEGATIVE (NEGATIVE) Urine Blood NEGATIVE (0-5) Sebastian/ul Urine Nitrite NEGATIVE (NEGATIVE) Urine Bilirubin NEGATIVE (NEGATIVE) Urine Urobilinogen NEGATIVE (0-1) mg/dL Ur Leukocyte Esterase NEGATIVE (NEGATIVE) Urine WBC (Auto) NONE (0-5) /HPF Urine RBC (Auto) NONE (0-2) /HPF U Epithel Cells (Auto) NONE (FEW) /HPF Urine Bacteria (Auto) NONE (NEGATIVE) /HPF Urine Mucus (Auto) SLIGHT (NEGATIVE) /HPF Urine Culture Reflexed NO (NO) Urine Glucose NEGATIVE (NEGATIVE) mg/dL 03/26/20 03/26/20 03/26/20 Range/Units 15:30 15:30 18:20 WBC (4.0-10.5) K/mm3 RBC (4.1-5.6) M/mm3 Hgb (12.5-18.0) gm/dl Hct (42-50) % MCV (78-100) fl MCH (26-32) pg MCHC (32-36) g/dl RDW (11.5-14.0) % Plt Count (150-450) K/mm3 MPV (7.5-11.0) fl Gran % (36.0-66.0) % Eos # (Auto) (0-0.5) Absolute Lymphs (auto) (1.0-4.6) Absolute Monos (auto) (0.0-1.3) Lymphocytes % (24.0-44.0) % Monocytes % (0.0-12.0) % Eosinophils % (0.00-5.0) % Basophils % (0.0-0.4) % Absolute Granulocytes (1.4-6.9) Basophils # (0-0.4) Sodium (137-145) mmol/L Potassium (3.5-5.1) mmol/L Chloride (98-107) mmol/L Carbon Dioxide (22-30) mmol/L Anion Gap (5-15) MEQ/L BUN (9-20) mg/dL Creatinine (0.66-1.25) mg/dL Estimated GFR ML/MIN Glucose (74-106) mg/dL Hemoglobin A1c (4.5-6.0) % Calcium (8.4-10.2) mg/dL Total Bilirubin (0.2-1.3) mg/dL AST (17-59) U/L ALT (0-50) U/L Alkaline Phosphatase (38-126) U/L Troponin I < 0.012 < 0.012 (0.000-0.034) ng/mL NT-Pro-B Natriuret Pep 487 (0-900) pg/mL Serum Total Protein (6.3-8.2) g/dL Albumin (3.5-5.0) g/dL Urine Color (YELLOW) Urine Appearance (CLEAR) Urine pH (5-6) Ur Specific [place] (1.005-1.025) Urine Protein (Negative) Urine Ketones (NEGATIVE) Urine Blood (0-5) Sebastian/ul Urine Nitrite (NEGATIVE) Urine Bilirubin (NEGATIVE) Urine Urobilinogen (0-1) mg/dL Ur Leukocyte Esterase (NEGATIVE) Urine WBC (Auto) (0-5) /HPF Urine RBC (Auto) (0-2) /HPF U Epithel Cells (Auto) (FEW) /HPF Urine Bacteria (Auto) (NEGATIVE) /HPF Urine Mucus (Auto) (NEGATIVE) /HPF Urine Culture Reflexed (NO) Urine Glucose (NEGATIVE) mg/dL 03/26/20 03/26/20 Range/Units 20:00 Unknown WBC (4.0-10.5) K/mm3 RBC (4.1-5.6) M/mm3 Hgb (12.5-18.0) gm/dl Hct (42-50) % MCV (78-100) fl MCH (26-32) pg MCHC (32-36) g/dl RDW (11.5-14.0) % Plt Count (150-450) K/mm3 MPV (7.5-11.0) fl Gran % (36.0-66.0) % Eos # (Auto) (0-0.5) Absolute Lymphs (auto) (1.0-4.6) Absolute Monos (auto) (0.0-1.3) Lymphocytes % (24.0-44.0) % Monocytes % (0.0-12.0) % Eosinophils % (0.00-5.0) % Basophils % (0.0-0.4) % Absolute Granulocytes (1.4-6.9) Basophils # (0-0.4) Sodium (137-145) mmol/L Potassium (3.5-5.1) mmol/L Chloride (98-107) mmol/L Carbon Dioxide (22-30) mmol/L Anion Gap (5-15) MEQ/L BUN (9-20) mg/dL Creatinine (0.66-1.25) mg/dL Estimated GFR ML/MIN Glucose (74-106) mg/dL Hemoglobin A1c 6.84 H (4.5-6.0) % Calcium (8.4-10.2) mg/dL Total Bilirubin (0.2-1.3) mg/dL AST (17-59) U/L ALT (0-50) U/L Alkaline Phosphatase (38-126) U/L Troponin I < 0.012 (0.000-0.034) ng/mL NT-Pro-B Natriuret Pep (0-900) pg/mL Serum Total Protein (6.3-8.2) g/dL Albumin (3.5-5.0) g/dL Urine Color (YELLOW) Urine Appearance (CLEAR) Urine pH (5-6) Ur Specific [place] (1.005-1.025) Urine Protein (Negative) Urine Ketones (NEGATIVE) Urine Blood (0-5) Sebastian/ul Urine Nitrite (NEGATIVE) Urine Bilirubin (NEGATIVE) Urine Urobilinogen (0-1) mg/dL Ur Leukocyte Esterase (NEGATIVE) Urine WBC (Auto) (0-5) /HPF Urine RBC (Auto) (0-2) /HPF U Epithel Cells (Auto) (FEW) /HPF Urine Bacteria (Auto) (NEGATIVE) /HPF Urine Mucus (Auto) (NEGATIVE) /HPF Urine Culture Reflexed (NO) Urine Glucose (NEGATIVE) mg/dL - Radiology Exams Ordered Rad Exams-Entire Visit: Radiology Procedures Category Date Time Status ABDOMEN AND PELVIS W CONTRAST [CT] Stat Exams 03/26/20 19:49 Taken CHEST 1 VIEW (PORTABLE) Stat Exams 03/26/20 15:03 Completed CHEST WITH CONTRAST [CT] Stat Exams 03/26/20 19:49 Taken HEAD WITHOUT CONTRAST [CT] Stat Exams 03/26/20 15:03 Completed - Procedures and Test Procedures and Tests throughout Hospitalization: Therapy Orders & Screens 03/26/20 19:06 Respiratory Therapy Assessment DAILY Comment: Diagnosis: hypertensive Urgency 03/26/20 19:55 EKG ROUTINE Comment: Diagnosis: hypertensive Urgency 03/26/20 21:35 Oxygen Nasal Cannula 4 lpm Comment: Diagnosis: hypertensive Urgency - Discharge Discharge Date: 03/26/20 [facility]: [facility] Condition: Fair Prescriptions: No Action Tamsulosin HCl 0.4 mg [Flomax 0.4 MG] 0.4 mg PO DAILY Glimepiride 4 mg [Amaryl 4 mg] 4 mg PO DAILY lisinopriL [Lisinopril] 20 mg PO BID Metoprolol Succinate 50 mg PO HS Esomeprazole Magnesium 20 mg PO QAM Aspirin EC 81 mg [Ecotrin 81 mg] 81 mg PO HS Fluticasone/Umeclidin/Vilanter [Trelegy Ellipta 100-62.5-25] 1 puff IH DAILY Albuterol/Ipratropium cc [Combivent Inhaler COMMON CANISTER] 1 puff IH DAILY PRN PRN PRN Reason: Shortness Of Breath/Wheezing Follow up with: TIFFANY LA MD [Primary Care Provider] - 1 Week Forms: Ambulance Transport Record, Transfer Record Inter-Agency
--- NOTE | 2020-03-27 19:58 | XRAY ---
Indication: Headache and chest pressure. Uncontrolled hypertension. Multiple contiguous axial images obtained through the chest using 100 cc Isovue-370 contrast. Comparison: None Lungs inflated with diffuse pulmonary emphysema and mild bibasilar dependent atelectasis. No suspicious pulmonary mass, infiltrate, or effusion. Heart is not enlarged. Aorta is normal in course and caliber. No pathologic mediastinal/hilar lymphadenopathy. Bony thorax intact with mild degenerative changes throughout the spine. CT abdomen/pelvis reported separately. Impression: Diffuse pulmonary emphysema. Remaining CT chest with contrast exam is negative. Comment: Preliminary interpretation was made by [facility]. No critical discrepancy.
--- NOTE | 2020-03-27 20:03 | XRAY ---
Indication: Headache, abdomen pain, and chest pressure. Uncontrolled hypertension. Multiple contiguous axial images obtained through the abdomen and pelvis using 100 cc Isovue-370 contrast only. Comparison: None CT chest reported separately. Entire pelvis is not included as the patient became agitated and examination terminated. Noncontrasted stomach and visualized bowel loops appear nonobstructed. Scattered descending and sigmoid diverticulosis. No free fluid/air. Visualized urinary bladder moderately distended. Remaining liver, gallbladder, pancreas, spleen, adrenal glands, kidneys, proximal ureters appear unremarkable. Mild scattered aortoiliac calcifications without AAA. No pathological retroperitoneal lymphadenopathy. Osseous structures intact with mild degenerative changes throughout the spine. Impression: 1. Incomplete exam as the pelvis is not completely included. 2. Colonic diverticulosis. 3. Distended urinary bladder. Rule out outlet obstruction versus neurogenic bladder. Comment: Preliminary interpretation was made by [facility]. No critical discrepancy.
== END 2020-03-26 20:56 | disposition short-term general hospital (02) ==
LOC: ED 14:22 → OBSVTOIN 17:42 → MED SURG 17:42 → INTOOBSV 17:42 → ICU 17:43 → UNDODISOB 20:56
PROVIDERS: ADMIT General Practice; ATTEND General Practice
DX: I16.0 Hypertensive urgency (principal); E11.9 Type 2 diabetes mellitus without complications; N40.0 Benign prostatic hyperplasia without lower urinary tract symptoms; R51 Headache; J44.9 Chronic obstructive pulmonary disease, unspecified; Z79.899 Other long term (current) drug therapy; F17.200 Nicotine dependence, unspecified, uncomplicated
CPT/HCPCS: 36000; 36415; 70450; 71045; 71260; 74177; 80053; 81001; 83036; 83880; 84484; 85025; 93005; 93041; 93268; 94640; 96374; 99285; 99291; G0378; J0360; J2405; J3010; A9270-GY

== ENCOUNTER 2025-04-14 14:08 | Day surgery (SDC) | payer MEDICARE ==
[2025-04-14] MEDS ORDERED: methylPREDNISolone acetate IM ONE (14:09)
[2025-04-14] MEDS ORDERED: LIDOCAINE HCL 2% 100 MG/5 ML IJ ONE (14:09)
[2025-04-14] MEDS ORDERED: propofoL IV ONE ×2 (15:19→15:22)
[2025-04-14] MEDS ORDERED: Lactated Ringers 1,000 ML IV ONE (16:22)
--- NOTE | 2025-04-14 19:15 | XRAY ---
Indication: Bilateral L4-S1 MBB. Intraoperative fluoroscopy provided for 7 seconds. Single digital spot image submitted for interpretation demonstrates posterior needle tips projecting over expected left and right L4-S1 nerve roots. Correlate with intraoperative findings/report.
--- NOTE | 2025-04-14 19:37 | XRAY ---
7 seconds of fluoroscopy was used in surgery for a bilateral L4-S1 MBB.
== END 2025-04-14 15:50 | disposition home or self-care (01) ==
LOC: SDC-PAIN 14:08
PROVIDERS: ATTEND Psychiatry & Neurology Pain Medicine
DX: M47.817 Spondylosis without myelopathy or radiculopathy, lumbosacral region (principal); E11.9 Type 2 diabetes mellitus without complications

== ENCOUNTER 2025-07-08 10:48 | Day surgery (SDC) | payer MEDICARE ==
[2025-07-08] MEDS ORDERED: methylPREDNISolone acetate IM ONE (10:49)
[2025-07-08] MEDS ORDERED: BUPIVACAINE 0.5% VIAL IJ ONE (10:49)
[2025-07-08] MEDS ORDERED: propofoL IV ONE (12:38)
[2025-07-08] MEDS ORDERED: Xylocaine-Mpf 2% 5 Ml Vial ONE (12:58)
--- NOTE | 2025-07-08 13:50 | XRAY ---
Indication: Bilateral L4-S1 MBB. Intraoperative fluoroscopy provided for 5 seconds. Single digital spot image submitted for interpretation demonstrates posterior needle tips projecting over expected left and right L4-S1 nerve roots. Correlate with intraoperative findings/report.
--- NOTE | 2025-07-08 13:54 | XRAY ---
5 seconds of fluoroscopy was used in surgery for a bilateral L4-S1 MBB.
[2025-07-08] MEDS ORDERED: Lactated Ringers 1,000 ML IV ONE (15:17)
== END 2025-07-08 13:15 | disposition home or self-care (01) ==
LOC: SDC-PAIN 10:48
PROVIDERS: ATTEND Psychiatry & Neurology Pain Medicine
DX: M47.817 Spondylosis without myelopathy or radiculopathy, lumbosacral region (principal); E11.9 Type 2 diabetes mellitus without complications